=== PATIENT | female | born 2005 | race Caucasian/White ===

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

== ENCOUNTER 2023-08-29 20:29 | Observation (INO) | payer OTHER, SELFPAY ==
--- NOTE | ~2023-08-29 | XR_ITS ---
EXAMINATION: XR chest 2V Exam Date/Time: 08/29/2023 20:40 DEMOLITION EXPERT HISTORY: short of breath, Comparison: None. RESULT: Lines, tubes, and devices: None. Lungs and pleura: Clear. Cardiomediastinal silhouette: Normal. Other: No acute osseous or upper abdominal finding. IMPRESSION: No acute cardiopulmonary process. Reviewed, dictated and finalized at location K. LITION EXPERT
[2023-08-29 20:30] VITALS: BP 125/84; PULSE 137; RESP 14; TEMP 36.7; O2SAT 100
--- NOTE | 2023-08-29 20:33 | ECG_ITS ---
Measurements Intervals [place] Rate: 180 P: 84 MT: 136 QRS: 91 QRSD: 83 T: 76 QT: 411 QTc: 593 Interpretive Statements SINUS TACHYCARDIA BORDERLINE RIGHT AXIS DEVIATION [QRS AXIS > 90] NONSPECIFIC ST & T-WAVE ABNORMALITY ABNORMAL RHYTHM ECG NO PREVIOUS ECG AVAILABLE FOR COMPARISON Electronically Signed On 08-30-2023 9:14:31 BUS DRIVER by Francisco Arias M.D.
[2023-08-29 20:47] LABS: Basophils Absolute Auto 0.1 K/mm3 (0.0-0.1); Basophils Percent Auto 0.7 % (0.2-1.2); Eosinophils Absolute Auto 0.1 K/mm3 (0-0.3); Eosinophils Percent Auto 0.7 % (0-4.4); Hematocrit 39.4 % (37.0-47.0); Hemoglobin 13.5 g/dL (12.0-15.0); Immature Granulocyte Absolute 0.02 K/mm3 (0.00-0.031); Immature Granulocyte Percent A 0.2 % (0-0.5); Lymphocytes Absolute Auto 2.06 K/mm3 (0.9-3.2); Lymphocytes Percent Auto 25.6 % (18.3-44.2); Mean Corpuscular HGB Conc 34.3 g/dl (32-36); Mean Corpuscular Hemoglobin 30.5 pg (26-34); Mean Corpuscular Volume 89.1 fl (80-100); Mean Platelet Volume 9.9 fl (7.4-10.4); Monocytes Absolute Auto 0.5 K/mm3 (0.1-0.6); Monocytes Percent Auto 6.5 % (2.6-8.5); Neutrophils Absolute Auto 5.3 K/mm3 (1.3-6.7); Neutrophils Percent Auto 66.3 % (45.5-73.1); Platelet Count Result 224 k/mm3 (150-375); Red Blood Count 4.42 M/mm3 (4.2-5.4); Red Cell Distribution Width 11.9 % (11.5-14.5)
[2023-08-29 21:02] LABS: Alanine Aminotransferase 20 U/L (6-35); Albumin Level 4.5 g/dL (3.5-5.1); Alkaline Phosphatase 66 U/L (38-126); Anion Gap 12 mmol/L (8-16); Aspartate Amino Transferase 16 U/L (14-36); Bilirubin,Total 0.4 mg/dL (0.2-1.3); Blood Urea Nitrogen 9 mg/dL (7-17); Calcium 8.7 mg/dL (8.4-10.2); Carbon Dioxide 21 mmol/L (22-30); Chloride 107 mmol/L (98-107); Estimated CRCL calculation 99 ml/min; Estimated Glomerular Filt Rate > 60; Glucose 98 mg/dL (65-110); Potassium 3.4 mmol/L (3.4-5.0); Sodium 140 mmol/L (137-145)
[2023-08-30] VITALS (10 sets, daily range): BP systolic 102–124; BP diastolic 49–79; PULSE 80–124; RESP 14–18; TEMP 35.7–36.9; O2SAT 97–100
--- NOTE | 2023-08-30 | ECHO_ITS ---
Patient Info Name: Lianna Hyatt Age: 18 years : 2005 Gender: Female Ht: 68 in Wt: 150 lbs BSA: 1.81 m2 HR: 78 bpm BP: 106 / 72 mmHg Heart Rhythm: Sinus Rhythm Technical Quality: Good Exam Date: 08/30/2023 11:06 AM Exam Location: Echo Lab Exam Room: 248 Patient Status: Inpatient Admit Date: 08/30/2023 Staff Ordering Physician: Francisco Arias MD ([email or web address]/[email or web address]) Alumni Relations Manager: Ria De León RDCS Attending Provider: Shagufta Thorpe DO Referring Physician: Hugo DICKERSON; Exam Type: CA echo doppler color flow Study Info Indications - palpitations Complete two-dimensional, color flow and Doppler transthoracic echocardiogram is performed. Summary 1. Complete two-dimensional, color flow and Doppler transthoracic echocardiogram is performed. 2. Left ventricular chamber dimension is normal. 3. Left ventricular systolic function is normal, estimated at 55-60%. 4. Right ventricular systolic function is normal. 5. There is mild mitral valve regurgitation. 6. There is mild pulmonic regurgitation. Left Ventricle Left ventricular chamber dimension is normal. Left ventricular systolic function is normal, estimated at 55-60%. There is no increased left ventricular wall thickness. Right Ventricle Right ventricular chamber dimension is normal. Right ventricular systolic function is normal. Left Atria Left atrial chamber dimension is normal. Right Atria Right atrial chamber dimension is normal. Atrial Septum Intact interatrial septum visualized by color flow imaging. Aortic Valve The aortic valve is trileaflet. There is no aortic valve stenosis. There is no aortic valve regurgitation. Pulmonic Valve The pulmonic valve is not well visualized. There is mild pulmonic regurgitation. Mitral Valve There is mild mitral valve regurgitation. Tricuspid Valve There is trace tricuspid valve regurgitation. Pericardium/Pleural There is no pericardial effusion. Inferior Vena Cava Normal inferior vena cava with >50% collapse upon inspiration consistent with normal right atrial pressure, 3 mmHg. Aorta The aortic root size at the sinus of Valsalva is normal. Left Ventricular Outflow Tract Name Value Normal LVOT 2D LVOT Diameter 2.0 cm LVOT Doppler LVOT Peak Gradient 6 mmHg LVOT Mean Gradient 3 mmHg LVOT VTI 24 cm LVOT VTI/AV VTI Ratio 0.9 LVOT Stroke Volume 73 ml LVOT CO 16.1 l/min LVOT CI 8.9 l/min/m2 Pulmonic Valve Name Value Normal PV Doppler PV Peak Gradient 4 mmHg Mitral Valve Name Value Normal MV Doppler --------
--- NOTE | 2023-08-30 02:38 | ECG_ITS ---
Measurements Intervals [place] Rate: 80 P: 68 UT: 133 QRS: 73 QRSD: 90 T: 45 QT: 382 QTc: 441 Interpretive Statements SINUS RHYTHM WITH SINUS ARRHYTHMIA COMPARED TO ECG 08/29/2023 20:36:43 SINUS RHYTHM NOW PRESENT SINUS ARRHYTHMIA NOW PRESENT Electronically Signed On 08-30-2023 9:14:43 CURING ROOM SUPERVISOR by Francisco Arias M.D.
--- NOTE | 2023-08-30 02:38 | ED.ARRPALP ---
HPI - Arrhythmia/Palpitations General Chief Complaint: Arrhythmia/Palpitations Stated Complaint: tachy/sob Time Seen by Provider: 08/30/23 01:30 History of Present Illness HPI narrative: Patient is a 18-year-old female presenting with tachycardia. Patient states that she was lying in bed when she started having palpitations. She put on her Apple watch that showed that her heart rate was in the low 100s. States that she was just keeping an eye on it and then she went to the bathroom and when she stood up her heart rate was in the 140s. States that she felt short of breath and a little lightheaded with this. This prompted her to come in for evaluation. Denies chest pain or leg swelling. Currently, she states that she feels improved and would like to go home. She denies history of blood clots though she states that her mom has had 1 in the past. She denies fevers, cough, nasal congestion, sore throat, abdominal pain, vomiting. Related Data Allergies Allergy/AdvReac Type Severity Reaction Status Date / Time No Known Allergies Allergy Verified 11/08/22 12:37 Review of Systems Review of Systems: All systems reviewed & are unremarkable except as noted in HPI and below PMFSH Past Medical History Medical History No active medical problems Family History Family History Mother History of blood clots Social History Social History Smoking status: Never smoker Alcohol intake: never Substance use: never Substance use type: does not use Lack of Transportation: No Lack of Food: Never True Current Housing: I Have Housing Concerned About Future Housing: No Difficulty Paying Gas/Electric Bills: No Difficulty Paying for Meds: No Currently Unemployed: No Education: High School Diploma/GED Difficulty w/ Childcare or Family Care: No Spiritual care concerns: No Exam Narrative: GENERAL: Well-appearing, In no acute distress, pleasant cooperative HEAD: Normocephalic, atraumatic. EYES: PERRLA and EOMI. ENT: grossly unremarkable NECK: Supple. CHEST: Clear to auscultation. No respiratory distress. HEART: Regular rate and rhythm ABDOMEN: nondistended EXTREMITIES: Normal range of motion. No edema. SKIN: Warm, dry, no rash. NEURO: Alert and oriented x3. PSYCH: Normal mood and affect. Course Vital Signs Vital signs: Vital Signs Temperature 98.0 F 08/29/23 20:30 Pulse Rate 137 H 08/29/23 20:30 Respiratory Rate 14 08/29/23 20:30 Blood Pressure 125/84 08/29/23 20:30 Pulse Oximetry 100 08/29/23 20:30 Temperature 96.3 F L 08/30/23 13:46 Pulse Rate 94 08/30/23 14:32 Respiratory Rate 14 08/30/23 13:46 Blood Pressure 102/49 L 08/30/23 13:46 Pulse Oximetry 97 08/30/23 13:46 Oxygen Delivery Room Air 08/30/23 00:59 MDM - Arrhythmia/Palpitations MDM Narrative Medical decision making narrative: patient is a 18-year-old female presenting with an episode of tachycardia, lightheadedness, shortness of breath. On arrival, she was tachycardic in the 130s. She is normotensive and saturating 100% on room air. By the time I evaluated her, her heart rate had normalized. She currently denies complaints. EKG on arrival shows sinus tachycardia, prolonged qtc, nonspecific ST changes, no ST elevations or depressions. Blood work is unremarkable. Repeat EKG shows sinus rhythm with a sinus arrhythmia. The ST changes have resolved, continues to have somewhat high voltage. Spoke with cardiology who advises observation, plan for echo in the morning. Patient is agreeable with this plan. Differential Diagnosis Differential diagnosis: Likely palpitations, anxiety, sinus tachycardia, artial flutter and supraventricular tachycardia Medical Records Attestation: I reviewed the patient's medical records. Lab Data Attestation
[2023-08-30] MEDS: SODIUM CHLORIDE 0.9% IV 1,000 ML 999 ML IV CONT (02:58)
[2023-08-30 03:05] LABS: Magnesium 2.3 mg/dL (1.6-2.3)
[2023-08-30 03:14] LABS: Troponin I < 0.012 ng/mL (0.000-0.034)
[2023-08-30 03:37] LABS: D Dimer 0.27 ug/mL (<0.48)
--- NOTE | 2023-08-30 05:19 | ADMGEN ---
This patient, Lianna Hyatt, was admitted to Medical Room 248-. Patient/family oriented to hospital policies and general routines including ID bracelet, bed and alarms, visiting hours, pain management, procedures, bathroom and other care routines, personal items, smoking policy, room service/diet, and visiting hours. Information on how to activate the Rapid Response Team has been discussed. Patient/Family are encouraged to report perceived risks to care and to ask questions if they do not understand what they are told or what they should do.
--- NOTE | 2023-08-30 09:45 | PM.IMHP ---
H&P: HPI History of Present Illness Date/Time: 08/30/23 09:45 Chief Complaint: Palpitations Narrative: Patient is a 18 year old female with no significant past medical history who presented to [facility] for evaluation for palpitations. She was sitting in her bed last night and started feeling palpitations around 7pm last night. Does not have a history of palpitations otherwise, and last night was the first time she felt it. Feels her heart rate increasing whenever she stands up, goes back down with sitting. No symptoms at rest, only with standing up. Gets lightheaded with standing up as well. No syncope. No chest pain. No recent viral illnesses or other illnesses. ER workup shows unremarkable labs, negative troponin. Initial EKG with sinus tachycardia at a heart rate of 180bpm. Computer read on EKG read QTc as 593, however, upon my manual calculation, QT is within normal limits. Had a repeat EKG with sinus rhythm with sinus arrhythmia. Review of Systems Review of Systems: All systems reviewed & are unremarkable except as noted in HPI and below (HPI) [facility] Past Medical History Medical History No active medical problems Family History Family History Mother History of blood clots Social History Social History Smoking status: Never smoker Alcohol intake: never Substance use: never Substance use type: does not use Lack of Transportation: No Lack of Food: Never True Current Housing: I Have Housing Concerned About Future Housing: No Difficulty Paying Gas/Electric Bills: No Difficulty Paying for Meds: No Currently Unemployed: No Education: High School Diploma/GED Difficulty w/ Childcare or Family Care: No Spiritual care concerns: No Meds Home Medications and Allergies Allergies Allergy/AdvReac Type Severity Reaction Status Date / Time No Known Allergies Allergy Verified 11/08/22 12:37 Vital Signs Vital Signs - 24 hr 08/29/23 20:30 08/30/23 00:59 08/30/23 04:36 Temperature 36.7 C Pulse Rate 137 H 93 86 Respiratory Rate 14 16 17 Blood Pressure 125/84 121/79 104/58 L Pulse Oximetry 100 100 100 Oxygen Delivery Room Air 08/30/23 05:41 08/30/23 05:43 Temperature 36.7 C Pulse Rate 102 H 93 Respiratory Rate 18 Blood Pressure 106/72 Pulse Oximetry 99 Oxygen Delivery Exam Const: General: comfortable and no acute distress HENMT: Mouth: Yes moist mucous membranes Eyes: General: appearance normal, both eyes and all related structures Sclera: sclerae normal Neck: Neck: supple Resp: Effort & Inspection: normal respiratory effort Auscultation: clear to auscultation bilaterally Cardio: Rate: regular rate Rhythm: regular rhythm Heart sounds: no murmurs Skin: General skin exam: normal color Neuro: Speech: normal speech Extrem: General: normal to inspection Psych: Mental Status: mental status grossly normal Affect: normal affect H&P: Results Labs Labs: Short CBC 08/29/23 Range/Units 20:40 WBC 8.0 (4.5-10.0) K/mm3 Hgb 13.5 (12.0-15.0) g/dL Hct 39.4 (37.0-47.0) % Plt Count 224 (150-375) k/mm3 BMP 08/29/23 20:40 Sodium 140 Potassium 3.4 Chloride 107 Carbon Dioxide 21 L BUN 9 Creatinine 0.80 Glucose 98 Calcium 8.7 Cardiac Enzymes 08/29/23 Range/Units 20:40 Troponin I < 0.012 (0.000-0.034) ng/mL Liver Function 08/29/23 Range/Units 20:40 Total Bilirubin 0.4 (0.2-1.3) mg/dL AST 16 (14-36) U/L ALT 20 (6-35) U/L Alkaline Phosphatase 66 (38-126) U/L Albumin 4.5 (3.5-5.1) g/dL Assessment and Plan Assessment and plan (1) Palpitations: Code(s): R00.2 - Palpitations Status: Acute (2) Sinus tachycardia: Code(s): R00.0 - Tachycardia, unspecified Status: Acute Plan Has intermittent sinus t
[2023-08-30 11:09] LABS: Pregnancy On Board Control Positive; Urine Pregnancy Test Negative
--- NOTE | 2023-08-30 14:02 | PM.DS ---
DS: Admitting Diagnosis Discharge Date 08/30/2023 Admitting Diagnosis Palpitations DS: Discharge Diagnosis Discharge Diagnosis (1) Palpitations: Code(s): R00.2 - Palpitations Status: Acute (2) Sinus tachycardia: Code(s): R00.0 - Tachycardia, unspecified Status: Acute (3) SVT (supraventricular tachycardia): Code(s): I47.10 - Supraventricular tachycardia, unspecified Status: Acute DS: Summary Hospital Course Hospital Course: Patient admitted for palpitations, sinus tachycardia on EKG. Has intermittent tachycardia that occurs with standing positions, along with lightheadedness that occurs with standing positions. Could be orthostasis, POTS, inappropriate sinus tachycardia. Has not had any recent illnesses or other problems to precipitate this. TSH level was normal. Urine test is negative. Orthostatic vital signs showed no significant drop in blood pressure, but her heart rate did increase by >30 beats going from supine to sitting position, concerning for possible POTS. Transthoracic echocardiogram unremarkable. Telemetry showed episodes of sinus tachycardia, but did not episode of SVT as well. Given this, started Toprol 50mg once daily. Recommend outpatient monitor and close follow up. Patient lives in [place], [place], and it would be difficult for her to come back to [place] for follow up with our Cardiology group. She does have a PCP, therefore she will follow up with her PCP and will establish care with a breaker operator close to home. Status at Discharge Cognitive/behavioral status at discharge: Stable Functional status at discharge: independent ambulation Overall status at discharge: patient is back to baseline Time Spent with Patient Time attestation: Total time spent providing and/or coordinating discharge services: Exam Narrative: See exam from [facility] dated 08/30. DS: Data Data Completed and Pending Labs on day of discharge: Labs from last 24 hours 08/30/23 08/30/23 08/30/23 10:58 02:55 02:42 WBC RBC Hgb Hct MCV MCH MCHC RDW Plt Count MPV Immature Gran % (Auto) Neut % (Auto) Lymph % (Auto) [place] % (Auto) Eos % (Auto) Baso % (Auto) Lymph # (Auto) [place] # (Auto) Eos # (Auto) Baso # (Auto) Abs Immat Gran (auto) Absolute Neuts (auto) Absolute Nucleated RBC Nucleated RBC % D-Dimer 0.27 Sodium Potassium Chloride Carbon Dioxide Anion Gap BUN Creatinine Estim Creat Clear Calc Estimated GFR Glucose Calcium Magnesium Total Bilirubin AST ALT Alkaline Phosphatase Troponin I Total Protein Albumin TSH 1.850 Urine Test Negative 08/29/23 20:40 WBC 8.0 RBC 4.42 Hgb 13.5 Hct 39.4 MCV 89.1 MCH 30.5 MCHC 34.3 RDW 11.9 Plt Count 224 MPV 9.9 Immature Gran % (Auto) 0.2 Neut % (Auto) 66.3 Lymph % (Auto) 25.6 [place] % (Auto) 6.5 Eos % (Auto) 0.7 Baso % (Auto) 0.7 Lymph # (Auto) 2.06 [place] # (Auto) 0.5 Eos # (Auto) 0.1 Baso # (Auto) 0.1 Abs Immat Gran (auto) 0.02 Absolute Neuts (auto) 5.3 Absolute Nucleated RBC 0.0 Nucleated RBC % 0.0 D-Dimer Sodium 140 Potassium 3.4 Chloride 107 Carbon Dioxide 21 L Anion Gap 12 BUN 9 Creatinine 0.80 Estim Creat Clear Calc 99 Estimated GFR > 60 Glucose 98 Calcium 8.7 Magnesium 2.3 Total Bilirubin 0.4 AST 16 ALT 20 Alkaline Phosphatase 66 Troponin I < 0.012 Total Protein 8.0 Albumin 4.5 TSH Urine Test Discharge Plan Discharge Attending physician on discharge: Francisco Arias Discharging Clinician: Francisco Arias Anticipated Discharge Date/Time: 08/30/23 14:00 Patient Disposition: Home, Self-Care Activity: may shower Diet: regular Patient Instructions: Antibiotic Form Stand Alone Forms: General Discharge Information Follow-up/Referrals: Physician, Primary Care [Other]
[2023-08-30] MEDS: METOPROLOL SUCCINATE EXT REL 50 MG TABCR PO (14:32)
== END 2023-08-30 15:45 | disposition home or self-care (01) ==
LOC: ANHED 08-30 03:39 → ANH2MED 08-30 05:29
PROVIDERS: Physician Assistant; Admitting Provider Internal Medicine Cardiovascular Disease; Emergency Provider Emergency Medicine; Visit Provider Internal Medicine
DX: I47.10 Supraventricular tachycardia, unspecified (principal); I34.0 Nonrheumatic mitral (valve) insufficiency; I37.1 Nonrheumatic pulmonary valve insufficiency; Z79.899 Other long term (current) drug therapy
CPT/HCPCS: 36415; 71046; 80053; 81025; 83735; 84443; 84484; 85025; 85380; 93005; 93306; 96365; 99285; A9270; G0378; J7030